=== PATIENT | male | born 1960 | race Caucasian/White ===

== ENCOUNTER 2020-03-14 16:29 | Outpatient (CLI) | payer BC, SELFPAY ==
--- NOTE | ~2020-03-14 | XR_ITS ---
EXAMINATION: XR chest 2V DATE: 03/14/2020 16:57 INDICATION: Thoracic spine pain. COPD. TECHNIQUE: PA and lateral views of the chest were obtained. COMPARISON: Chest radiograph dated 08/13/2017 FINDINGS: The lungs remain clear with no focal airspace opacities, pulmonary edema, pleural effusion or pneumot horax. The cardiomediastinal silhouette is normal. Moderate lower thoracic spondylosis. A couple fixa tion screws at the right shoulder. IMPRESSION: 1. No acute cardiopulmonary disease. Reviewed, dictated and finalized at location A. 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
--- NOTE | ~2020-03-14 | CT_ITS ---
EXAMINATION: CT abdomen pelvis wo con DATE: 03/14/2020 16:50 INDICATION: Right lower quadrant abdominal pain. Right groin pain. TECHNIQUE: Computed tomography (CT) of the abdomen and pelvis was performed without intravenous contr ast. Automated exposure control and iterative reconstruction technique were employed. The dose-length product was 1497.48 mGy-cm. COMPARISON: None. FINDINGS: The visualized portions of the lung bases demonstrate minimal atelectasis. No pleural effus ion. The heart size is normal. There are coronary artery calcifications. No pericardial effusion. The re is diffuse hepatic steatosis. The liver, gallbladder, spleen, pancreas, and kidneys are normal. Th ere is no urolithiasis. The prostate is mildly enlarged. There are no dilated loops of bowel. The tg endix is normal. There are no pathologically enlarged lymph nodes. There is no free intraperitoneal f luid. There is an umbilical hernia containing fat. There are a few scattered benign bone islands. The re is mild thoracic spondylosis and severe lumbar spondylosis. IMPRESSION: 1. Umbilical hernia containing fat. 2. Diffuse hepatic steatosis. Reviewed, dictated and finalized at location A. [employer]
== END 2020-03-14 16:30 | disposition home or self-care (01) ==
PROVIDERS: PCP Family Medicine; Visit Provider Family Medicine
DX: M54.6 Pain in thoracic spine (principal); K42.9 Umbilical hernia without obstruction or gangrene; K76.0 Fatty (change of) liver, not elsewhere classified
CPT/HCPCS: 71046; 74176

== ENCOUNTER 2020-03-29 15:04 | Emergency (ER) | payer BC, SELFPAY ==
--- NOTE | ~2020-03-29 | US_ITS ---
EXAMINATION: US venous doppler LE RT EXAM DATE: 03/29/2020 15:57 INDICATION: thigh pain and calf swelling. TECHNIQUE: Multiple grayscale, color flow and Doppler images of the right lower extremity deep venous system were obtained and reviewed. Comparison is made to prior examination from 06/13/2017. FINDINGS: The right common femoral, femoral and profunda veins demonstrate normal color flow, respira tory variation, augmentation and compressibility. Compressibility, color flow confirmed within the r ight popliteal, posterior tibial, peroneal, and greater saphenous veins. IMPRESSION: 1. No right lower extremity deep venous thrombosis. Reviewed, dictated and finalized at location A. 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
[2020-03-29 15:25] VITALS: TEMP 36.6; O2SAT 97; O2SAT 98
--- NOTE | 2020-03-29 15:26 | ED.LOWEXIN ---
HPI - Extremity Injury (Lower) General Chief Complaint: Abdominal Pain Stated Complaint: possible blood clot in groin Time Seen by Provider: 03/29/20 15:19 History of Present Illness HPI Narrative: Pain in the medial right thigh for a few weeks. constant. Worse with activity. He reports that he has had previous imaging and knows that he has arthritis, but his PCP told him to come here and get checked for a blood clot. No swelling, color change trauma, CP, SOB. Related Data Home Medications Medication Instructions Recorded Confirmed divalproex 500 mg tablet,extended 500 mg PO BID tablet 03/28/19 01/18/20 release 24 hr sildenafil 100 mg tablet 100 mg PO DAILY PRN 03/28/19 01/18/20 Allergies Allergy/AdvReac Type Severity Reaction Status Date / Time rivaroxaban Allergy Unknown Swelling Verified 10/11/18 15:54 No Known Allergies Allergy Unverified 06/14/17 12:14 Review of Systems Review of Systems: All systems reviewed & are unremarkable except as noted in HPI and below Constitutional: Constitutional: Denies chills, Denies fever(s) and Denies weakness Cardiovascular: Cardiovascular: Denies chest pain Respiratory: Respiratory: Denies dyspnea Musculoskeletal: Musculoskeletal: Denies back pain Neurologic: Denies numbness and Denies weakness PMFSH Past Medical History Medical History Encounter for prostate cancer screening Hematochezia Peripheral neuropathy Polycythemia Right lower quadrant abdominal pain Thoracic back pain Tobacco use disorder, continuous UTI (urinary tract infection) Family History Family History Mother Patient's mother is in good health Father Acute myocardial infarction, Onset Age: 48 Grandparent Cerebrovascular accident, Onset Age: 78 Social History Social History Smoking packs per day: 0.5 Smoking cigarettes per day: 10.0 Years smoked: 40 Smoking pack-years: 20.00 Smoking status: Current every day smoker Alcohol intake: current Substance use: never Exam Const: General: no acute distress and alert Orientation/consciousness: patient oriented x3 HENMT: Head: normal to inspection Resp: Effort & Inspection: normal respiratory effort Auscultation: clear to auscultation bilaterally Cardio: Rate: regular rate Rhythm: regular rhythm Other: DP and popiteal pulses 2+ and symmetric GI: GI Palp: Yes Soft to palpation and No Tenderness to palpation present (GI) Skin: General skin exam: normal color Rashes: no rashes Wounds: no wounds Neuro: General: patient oriented x3, moves all extremities, no focal motor deficits and CN's II-XI intact bilaterally Speech: normal speech Gait exam (Neuro): Normal gait present Extrem: General: normal to inspection and no edema Other: tenderness over the origin of the hip adductors on the right Psych: Appearance: grossly normal and well kempt Mental Status: mental status grossly normal Affect: normal affect Course Vital Signs Vital signs: Vital Signs Temperature 36.6 C 03/29/20 15:25 Pulse Oximetry 98 03/29/20 15:25 Temperature 36.6 C 03/29/20 15:25 Pulse Rate 67 03/29/20 16:41 Respiratory Rate 16 03/29/20 16:41 Blood Pressure 160/84 H 03/29/20 16:41 Pulse Oximetry 96 03/29/20 16:41 MDM - Extremity Injury (Lower) MDM Narrative Medical decision making narrative: Pain seems to arise from the hip joint on exam. Most likely arthritis. Could be aductor strain. I will obtain an ultrasound to rule out DVT. Medical Records Attestation: I reviewed the patient's medical records. Lab Data Attestation: I reviewed the patient's lab results. Result diagrams: 03/29/20 15:36 03/29/20 15:36 Labs: Lab Results 03/29/20 03/29/20 03/29/20 Range/Units 15:36 15:36 15:36 WBC 9.
[2020-03-29 15:40] VITALS: O2SAT 95
[2020-03-29 15:48] LABS: Basophils Percent Auto 0.3 % (0.2-1.2); Eosinophils Absolute Auto 0.2 K/mm3 (0-0.3); Hematocrit 50.6 % (42.0-52.0); Hemoglobin 16.9 g/dL (14.0-18.0); Immature Granulocyte Absolute 0.03 K/mm3 (0.00-0.031); Immature Granulocyte Percent A 0.3 % (0-0.5); Lymphocytes Absolute Auto 1.86 K/mm3 (0.9-3.2); Lymphocytes Percent Auto 19.9 % (18.3-44.2); Mean Corpuscular HGB Conc 33.4 g/dl (32-36); Mean Corpuscular Hemoglobin 30.7 pg (26-34); Mean Corpuscular Volume 91.8 fl (80-100); Mean Platelet Volume 9.8 fl (7.4-10.4); Monocytes Absolute Auto 0.7 K/mm3 (0.1-0.6); Monocytes Percent Auto 7.4 % (2.6-8.5); Neutrophils Absolute Auto 6.5 K/mm3 (1.3-6.7); Neutrophils Percent Auto 70.1 % (45.5-73.1); Platelet Count Result 206 k/mm3 (150-375); Red Blood Count 5.51 M/mm3 (4.6-6.20); Red Cell Distribution Width 13.6 % (11.5-14.5); White Blood Count 9.3 K/mm3 (4.5-10.0)
[2020-03-29 15:55] LABS: Anion Gap 9 mmol/L (8-16); Blood Urea Nitrogen 16 mg/dL (9-20); Calcium 9.2 mg/dL (8.4-10.2); Carbon Dioxide 30 mmol/L (22-30); Chloride 101 mmol/L (98-107); Estimated CRCL calculation 103 ml/min; Estimated Glomerular Filt Rate > 60; Glucose 98 mg/dL (75-110); Potassium 4.6 mmol/L (3.4-5.0); Sodium 140 mmol/L (137-145)
[2020-03-29 15:56] LABS: INR 0.9; Partial Thromboplastin Time 24.2 SECONDS (22.3-36.8); Prothrombin Time 13.2 Seconds (11.1-14.7)
--- NOTE | 2020-03-29 16:07 | PC.NURSE ---
patient back from ultrasound. resting on stretcher.
[2020-03-29 16:41] VITALS: BP 160/84; PULSE 67; RESP 16; O2SAT 96
== END 2020-03-29 16:43 | disposition home or self-care (01) ==
PROVIDERS: Emergency Provider Emergency Medicine; PCP Family Medicine
DX: R10.31 Right lower quadrant pain (principal); G62.9 Polyneuropathy, unspecified; Z87.440 Personal history of urinary (tract) infections; F17.210 Nicotine dependence, cigarettes, uncomplicated
CPT/HCPCS: 36415; 80048; 85025; 85610; 85730; 93971; 99284

== ENCOUNTER 2020-05-01 12:40 | Outpatient (CLI) | payer BC, SELFPAY ==
--- NOTE | ~2020-05-01 | XR_ITS ---
EXAMINATION: XR lg joint inject/asp w image DATE: 05/01/2020 13:28 INDICATION: Right hip primary osteoarthritis. TECHNIQUE: A time-out was performed to verify the patient's name, date of , and procedure to b e performed. The procedure including the risks, benefits, and alternatives was discussed with the pat ient. Risks discussed included bleeding and infection. The patient understood the risks and agreed to proceed. The skin overlying the right hip joint was prepped and draped in usual sterile fashion. A nesthetic was administered with 1% lidocaine subcutaneously. A 22 G needle was advanced under fluoro scopic guidance into the joint. Injection of 1 mL of Omnipaque 240 confirmed intra-articular positio n of the needle. Subsequently, injectate consisting of 5 mL 1% lidocaine and 2 mL 10 mg/mL Kenalog w as instilled. The needle was removed and the entry site was cleaned and dressed. There were no imme diate complications. Fluoroscopy exposure time was 0.1 minutes. The total number of images was 2. FINDINGS: Real-time fluoroscopy demonstrates the needle in the right hip joint. Patient's pain prior to procedure:10/18. Patient's pain following the procedure: 05/20. IMPRESSION: 1. Fluoroscopy guided right hip joint injection of local anesthetic and steroid with decrease in the patient's presenting pain. Reviewed, dictated and finalized at location A. PRESIDENT FINANCIAL
== END 2020-05-01 12:41 | disposition home or self-care (01) ==
PROVIDERS: PCP Family Medicine; Visit Provider Orthopaedic Surgery
DX: M16.11 Unilateral primary osteoarthritis, right hip (principal)
CPT/HCPCS: 20610; 77002; J3301; Q9966

== ENCOUNTER 2020-06-06 16:27 | Outpatient (CLI) | payer BC, SELFPAY ==
--- NOTE | ~2020-06-06 | MR_ITS ---
EXAMINATION: MR hip RT wo con DATE: 06/06/2020 17:45 INDICATION: Right hip pain TECHNIQUE: Magnetic resonance imaging (MRI) of the right hip was performed without intravenous contr ast. Sequences included full-field axial PD-weighted FS FSE and T1-weighted FSE, coronal of the pelvi s with PD-weighted FS FSE, small field of view of the right hip with axial PD-weighted FS FSE, sagit manuelito PD-weighted FS FSE and coronal PD weighted FS FSE. Additional radial T1-weighted FGR oriented ort hogonal to the acetabular rim were obtained for evaluation of the labrum. COMPARISON: None FINDINGS: Bones/labrum/cartilage: Alignment is normal. Low signal intensity sclerotic bone island at L5. No fracture, avascular necrosi s or pathologic marrow replacing process. Mild right hip osteoarthritis with nonuniform partial thick ness cartilage loss predominantly along the margins of the acetabulum without degenerative subchondra l changes. Severe lumbar spondylosis. Fluid: Small right hip joint effusion. There is also a small amount of fluid tracking cephalad along the rig ht iliopsoas bursa. Soft tissues: Normal and symmetric muscle bulk and signal in the pelvis and visualized proximal thighs. The iliopso as, gluteal and proximal hamstring tendons are normal. Limited evaluation of visceral organs of the p marsha is unremarkable. No pathologically enlarged pelvic/inguinal lymphadenopathy. IMPRESSION: 1. Mild right hip osteoarthritis with small joint effusion. Reviewed, dictated and finalized at location B. 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
== END 2020-06-06 16:28 | disposition home or self-care (01) ==
PROVIDERS: PCP Family Medicine; Visit Provider Orthopaedic Surgery
DX: M16.11 Unilateral primary osteoarthritis, right hip (principal); M25.451 Effusion, right hip
CPT/HCPCS: 73721

== ENCOUNTER 2021-01-10 14:09 | Emergency (ER) | payer BC, SELFPAY ==
[2021-01-10] VITALS (18 sets, daily range): BP systolic 145–175; BP diastolic 75–95; PULSE 59–98; RESP 18–20; TEMP 36.8; O2SAT 75–100
--- NOTE | ~2021-01-10 | XR_ITS ---
EXAMINATION: XR chest 2V DATE: 01/10/2021 14:35 INDICATION: Shortness of breath and congestion TECHNIQUE: PA and lateral views of the chest are obtained. COMPARISON: 03/14/2020 FINDINGS: There are minimal airspace opacities of the lung bases. There is no pleural effusion or pne umothorax. The cardiomediastinal silhouette is normal. There is moderate thoracic spondylosis. Book Solicitor al stabilization screws are noted in the right scapula. IMPRESSION: 1. Bibasilar airspace opacities, consistent with atelectasis versus pneumonia. Reviewed, dictated and finalized at location A.
--- NOTE | 2021-01-10 14:17 | ECG_ITS ---
Measurements Intervals [place] Rate: 62 P: 44 HI: 153 QRS: 72 QRSD: 108 T: 50 QT: 405 QTc: 412 Interpretive Statements SINUS RHYTHM NORMAL ECG Electronically Signed On 01-10-2021 14:25:06 CDT by Fortino Abad D.O.
[2021-01-10 14:57] LABS: Basophils Percent Auto 0.3 % (0.2-1.2); Eosinophils Absolute Auto 0.2 K/mm3 (0-0.3); Eosinophils Percent Auto 2.7 % (0-4.4); Hematocrit 48.7 % (42.0-52.0); Hemoglobin 16.2 g/dL (14.0-18.0); Immature Granulocyte Absolute 0.02 K/mm3 (0.00-0.031); Immature Granulocyte Percent A 0.3 % (0-0.5); Lymphocytes Absolute Auto 1.13 K/mm3 (0.9-3.2); Lymphocytes Percent Auto 14.6 % (18.3-44.2); Mean Corpuscular HGB Conc 33.3 g/dl (32-36); Mean Corpuscular Hemoglobin 31.4 pg (26-34); Mean Corpuscular Volume 94.4 fl (80-100); Mean Platelet Volume 9.7 fl (7.4-10.4); Monocytes Absolute Auto 0.7 K/mm3 (0.1-0.6); Monocytes Percent Auto 8.9 % (2.6-8.5); Neutrophils Absolute Auto 5.7 K/mm3 (1.3-6.7); Neutrophils Percent Auto 73.2 % (45.5-73.1); Platelet Count Result 188 k/mm3 (150-375); Red Blood Count 5.16 M/mm3 (4.6-6.20); Red Cell Distribution Width 12.8 % (11.5-14.5); White Blood Count 7.7 K/mm3 (4.5-10.0)
[2021-01-10 15:11] LABS: Anion Gap 11 mmol/L (8-16); Blood Urea Nitrogen 17 mg/dL (9-20); Calcium 9.5 mg/dL (8.4-10.2); Carbon Dioxide 30 mmol/L (22-30); Chloride 98 mmol/L (98-107); Estimated CRCL calculation 103 ml/min; Estimated Glomerular Filt Rate > 60; Glucose 114 mg/dL (65-110); Potassium 4.4 mmol/L (3.4-5.0); Sodium 139 mmol/L (137-145)
[2021-01-10 15:58] LABS: INR 0.9; Prothrombin Time 12.1 Seconds (11.1-14.7)
[2021-01-10] MEDS: predniSONE 20 MG TABLET 60 MG PO (16:02)
[2021-01-10 16:06] LABS: Troponin I < 0.012 ng/mL (0.000-0.034)
[2021-01-10 16:10] LABS: Alveolar/Arterial O2 Gradient 27.8 mmHg; Base Excess ABG 3.8 mEq/l (+/-2.0); Carboxyhemoglobin 3.5 % THb (0-2.0); Fractional Inspired Oxygen 21 %; HCO3 ABG 29.4 mEq/l (22.0-26.0); Methemoglobin ABG 0.4 %THb (0-1.5); Oxygen Content ABG 20.9 %vol (16.0-22.0); Oxygen Saturation ABG 92.9 % (95.0-100.0); PCO2 ABG 47.3 mmHg (35.0-45.0); PO2 ABG 65.3 mmHg (80.0-100.0); PO2 FiO2 Ratio Arterial Blood 3.11 %; Reduced Hemoglobin 7.1 %THb (0-5.0); Total Hemoglobin 16.7 g/dL (12.0-18.0); pH ABG 7.412 (7.350-7.450)
[2021-01-10 16:11] LABS: Device ROOM AIR; Modified Allen's Test Pass; Site Drawn RIGHT RADIAL
[2021-01-10] MEDS: ALBUTEROL SULFATE (*SP) AEROSOL 1 PUFF 4 PUFF INHALATION (16:12)
[2021-01-10 16:20] LABS: EDCOVIDSCREEN Negative (Negative)
[2021-01-10 16:24] LABS: D Dimer 0.27 ug/mL (<0.48)
--- NOTE | 2021-01-10 16:33 | ED.URI ---
HPI - URI/Sore Throat General Chief Complaint: Upper Respiratory Infection Stated Complaint: Head and Chest Cold/SOB Time Seen by Provider: 01/10/21 14:59 Source: patient Mode of arrival: ambulatory Limitations: no limitations History of Present Illness HPI Narrative: This is a 60 year old male with history of COPD who presents for evaluation of sob and URI symptoms for 4 days. Patient states he developed head cold symptoms and shortness of breath on Thursday. He reports sinus congestion and drainage. He also reports cough with intermittent chest pain and sob. Patient state his doctor recommended he come to ER since he was wheezing, but he prescribed him steroids and antibiotics. He denies chest pain currently. He denies vomiting, abdominal pain. Related Data Allergies Allergy/AdvReac Type Severity Reaction Status Date / Time rivaroxaban Allergy Unknown Swelling Verified 10/11/18 15:54 No Known Allergies Allergy Unverified 01/10/21 15:11 Review of Systems Review of Systems: All systems reviewed & are unremarkable except as noted in HPI and below Constitutional: Constitutional: Denies chills and Denies fever(s) ENT: Reports nasal congestion Cardiovascular: Cardiovascular: Reports chest pain Respiratory: Respiratory: Reports cough, Reports dyspnea and Reports wheezing Gastrointestinal: Gastrointestinal: Denies abdominal pain and Reports nausea PMFSH Past Medical History Medical History (Updated 01/10/21 @ 17:26 by Mima Camacho MD) Acute bronchitis Encounter for prostate cancer screening Gout Hematochezia Hypertension Osteoarthritis of right hip Pain of right lower extremity Peripheral neuropathy Polycythemia Right lower quadrant abdominal pain Thoracic back pain Tobacco use disorder, continuous UTI (urinary tract infection) Surgical History Surgical History H/O left knee surgery october 2010 H/O shoulder surgery 1994 History of right knee surgery 2017 TKA, Dr. Jane Family History Family History Mother Patient's mother is in good health Father Acute myocardial infarction, Onset Age: 48 Grandparent Cerebrovascular accident, Onset Age: 78 Social History Social History Smoking packs per day: 0.5 Smoking cigarettes per day: 10.0 Years smoked: 40 Smoking pack-years: 20.00 Smoking status: Current every day smoker ( less than 1/2 of a pack daily with patient trying to quit) Alcohol intake: current Drinks per week: 15 Substance use: never Substance use type: does not use Additional occupation/education comments: [employer] Gender identity (if verbalized by the patient): Male Exam Const: General: no acute distress and alert Orientation/consciousness: patient oriented x3 HENMT: Ears: TM's normal bilaterally Eyes: Pupils: Equal, round and reactive pupils present EOM: EOMs intact bilaterally Resp: Effort & Inspection: normal respiratory effort, not labored, not tachypneic and no use of accessory muscles Auscultation: wheezes expiratory wheezes and throughout Cardio: Rate: regular rate Rhythm: regular rhythm Heart sounds: no murmurs GI: GI Palp: Yes Soft to palpation, No Tenderness to palpation present (GI) and No Guarding due to palpation present (GI) Auscultation: normal bowel sounds Skin: General skin exam: normal color Rashes: no rashes Neuro: General: patient oriented x3, moves all extremities and CN's II-XI intact bilaterally Gait exam (Neuro): Normal gait present Course Reevaluation(s) Reevaluation #1: Patient states he feels much better after inhaler I reviewed labs and xray. He states his doctor called him in antibiotics. I performed a walking pulse ox and patient's oxygen saturation was 94% walking down espinal. He feels comfortable with discharge
== END 2021-01-10 17:38 | disposition home or self-care (01) ==
PROVIDERS: Emergency Medicine; Emergency Provider General Practice; PCP Family Medicine
DX: J44.1 Chronic obstructive pulmonary disease with (acute) exacerbation (principal); J18.9 Pneumonia, unspecified organism; Z20.822 Contact with and (suspected) exposure to COVID-19; M10.9 Gout, unspecified; I10 Essential (primary) hypertension; M16.11 Unilateral primary osteoarthritis, right hip; G62.9 Polyneuropathy, unspecified; Z87.442 Personal history of urinary calculi; F17.210 Nicotine dependence, cigarettes, uncomplicated
CPT/HCPCS: 36415; 36600; 71046; 80048; 82375; 82805; 83050; 84484; 85025; 85380; 85610; 85730; 87426; 87804; 93005; 94640; 99284; A9270; C9803; J7512

== ENCOUNTER 2021-05-23 12:36 | Outpatient (CLI) | payer BC, SELFPAY ==
--- NOTE | 2021-05-23 17:11 | WPDPFTINT ---
PFT Procedure Performed PFT Procedure Performed Spirometry with Pre/Post Bronchodilator Plethysmography (Lung Vol) Diffusing Cap (DLCO) Flow Vol Loop PFT Interpretation This is a pulmonary function test with pre and post-bronchodilator spirometry, plethysmography and diffusing capacity. The test was performed and results interpreted in accordance with the 2019 and 2005 ATS/ERS Task Force guidelines respectively using the Global Lung Function Initiative-2012 reference equations. Patient demonstrated good effort and cooperation. Reproducibility criteria were met. The quality of the pre bronchodilator spirometry maneuver was Grade A and post bronchodilator spirometry maneuver was Grade A. Findings: Spirometry: There is decreased maximal expiratory airflow at all lung volumes with concave expiratory flow tracing. The pre bronchodilator FVC is 3.05 L, 63% predicted. The pre bronchodilator FEV1 is 2.18 L, 59% predicted. The FEV1: FVC ratio 71%. The post bronchodilator FVC is 3.20 L, representing a 5% increase. The post bronchodilator FEV1 is 2.37 L, representing a 9% increase. The post bronchodilator FEV1: FVC ratio 74%. Plethysmography: Total lung capacity is 6.10 L, 82% predicted. The functional residual capacity is 3.49 L, 89% predicted. The residual volume is 2.82 L, 117% predicted. Diffusing capacity: The absolute diffusion capacity is 27.5, 96% predicted. The diffusing capacity corrected for alveolar volume is 5.74, 142% predicted. Impression: There is a moderately severe obstructive abnormality without significant improvement after inhaling a single dose of albuterol. Lung volumes are normal. The absolute diffusing capacity is normal and the diffusing capacity corrected for alveolar volume is increased. There are no prior studies for comparison
== END 2021-05-23 12:37 | disposition home or self-care (01) ==
LOC: ANHPFT 12:39
PROVIDERS: PCP Family Medicine; Visit Provider Family Medicine
DX: J44.9 Chronic obstructive pulmonary disease, unspecified (principal)
CPT/HCPCS: 94060; 94726; 94729

== ENCOUNTER 2021-07-16 12:02 | Inpatient (IN) | payer BC, SELFPAY ==
[2021-07-16] VITALS (17 sets, daily range): BP systolic 136–154; BP diastolic 52–101; PULSE 62–88; RESP 16–42; TEMP 36.6–37.3; O2SAT 90–97; BMI 42.2
--- NOTE | ~2021-07-16 | XR_ITS ---
EXAMINATION: XR chest 2V EXAM DATE: 07/16/2021 12:33 INDICATION: SOB COPD HBP TECHNIQUE: Frontal and lateral projections of the chest obtained and reviewed. Comparison is made to prior examination from 01/10/2021. FINDINGS: The lungs are clear. There are no pleural effusions. The cardiomediastinal silhouette is within normal limits. There is no pneumothorax suspected. Moderate-sized lower thoracic endplate os teophytes. IMPRESSION: No acute cardiopulmonary findings. Reviewed, dictated and finalized at location A. T LINE SUPERVISOR
--- NOTE | ~2021-07-16 | US_ITS ---
EXAMINATION: US venous doppler [facility] DATE: 07/17/2021 11:45 INDICATION: Bilateral lower limb edema TECHNIQUE: Carrion scale images without and with compression and Doppler images of the bilateral lower e xtremity veins were obtained. COMPARISON: 03/29/2020 FINDINGS: The right common femoral vein, profunda femoral vein, femoral vein, popliteal vein, peroneal trunk, p osterior tibial veins, and greater saphenous vein are patent. The left common femoral vein, profunda femoral vein, femoral vein, popliteal vein, peroneal trunk, po sterior tibial veins, and greater saphenous vein are patent. IMPRESSION: 1. Patent bilateral lower extremity veins. No evidence of deep venous thrombosis. Reviewed, dictated and finalized at location B. WORKER SUPERVISOR IMPRESSION: 1. Patent bilateral lower extremity veins. No evidence of deep venous thrombosi s.
--- NOTE | 2021-07-16 12:16 | ECG_ITS ---
Measurements Intervals [place] Rate: 87 P: 50 [place]: 151 QRS: 89 QRSD: 102 T: 61 QT: 344 QTc: 416 Interpretive Statements SINUS RHYTHM POSSIBLE LEFT ATRIAL ENLARGEMENT [-0.1mV P-WAVE IN V1/V2] BORDERLINE ECG COMPARED TO ECG 01/10/2021 14:20:27 POSSIBLE LEFT ATRIAL ENLARGEMENT Electronically Signed On 07-16-2021 14:54:36 PEDIATRIC CLINICAL DIETICIAN by Jaylen Her M.D.
--- NOTE | 2021-07-16 12:44 | ED.SOB ---
HPI - SOB/Dyspnea General Chief Complaint: Shortness of Breath/Dyspnea Stated Complaint: shortness of breath Time Seen by Provider: 07/16/21 12:29 Source: patient Mode of arrival: ambulatory Limitations: no limitations History of Present Illness HPI Narrative: Patient is a 61-year-old male complaining of shortness of breath accompanied by chest discomfort described as burning, mild, nonradiating, started 3 days ago. Patient has a history of COPD. Patient denies any chest pain, abdominal pain, nausea, vomiting, diaphoresis, fever or chills. Related Data Allergies Allergy/AdvReac Type Severity Reaction Status Date / Time rivaroxaban Allergy Unknown Swelling Verified 10/11/18 15:54 Review of Systems Review of Systems: All systems reviewed & are unremarkable except as noted in HPI and below Constitutional: Constitutional: Denies body ache(s), Denies chills, Denies excessive sweating, Denies fatigue, Denies fever(s), Denies headache(s), Denies lethargy, Denies malaise, Denies weakness and Denies weight loss Eyes: Eyes: Denies blurry vision, Denies change in vision and Denies loss of vision ENT: Denies dizziness, Denies ear discharge, Denies headache(s), Denies lip swelling, Denies epistaxis, Denies nasal congestion, Denies neck pain, Denies throat swelling and Denies tongue swelling Cardiovascular: Cardiovascular: Denies chest pain, Denies chest pain at rest, Denies chest pain with activity, Denies diaphoresis, Denies rapid heart rate, Denies edema, Denies irregular heart rhythm, Denies lightheadedness and Denies palpitations Respiratory: Respiratory: Denies chest congestion and Denies hemoptysis Gastrointestinal: Gastrointestinal: Denies abdominal pain, Denies melena, Denies hematochezia, Denies diarrhea, Denies nausea, Denies vomiting and Denies hematemesis Musculoskeletal: Musculoskeletal: Denies abnormal gait, Denies deformity, Denies joint swelling, Denies limited range of motion, Denies neck pain and Denies numbness Neurologic: Denies Abnormal speech present, Denies abnormal gait, Denies confusion, Denies dizziness, Denies headache(s), Denies focal weakness, Denies loss of vision, Denies numbness, Denies Other visual disturbances, Denies Sensory deficit (Neuro) and Denies weakness Psychiatric: Psychiatric: Denies confusion, Denies depression, Denies auditory hallucinations, Denies homicidal ideation and Denies suicidal ideation Endocrine: Endocrine: Denies cold intolerance, Denies excessive sweating, Denies fatigue, Denies heat intolerance and Denies palpitations Hematologic/Lymphatic: Hematologic/Lymphatic: Denies easy bleeding and Denies easy bruising Allergic/Immunologic: Allergic/Immunologic: Denies lip swelling, Denies throat swelling and Denies tongue swelling PMFSH Past Medical History Medical History Acute bronchitis BMI 39.0-39.9,adult Chronic low back pain with bilateral sciatica Colon cancer screening Encounter for prostate cancer screening Gout Hematochezia Hypertension Osteoarthritis of right hip Pain of right lower extremity Peripheral neuropathy Polycythemia Right lower quadrant abdominal pain Thoracic back pain Tobacco use disorder, continuous UTI (urinary tract infection) Surgical History Surgical History H/O left knee surgery october 2010 H/O shoulder surgery 1994 History of right knee surgery 2016 TKA, Dr. Jane Family History Family History Mother Patient's mother is in good health Father Acute myocardial infarction, Onset Age: 48 Grandparent Cerebrovascular accident, Onset Age: 78 Social History Social History Smoking packs per day: 0.5 Smoking cigarettes per day: 10.0 Years smoked: 40 Smoking pack-years: 20.00 Smoking status:
[2021-07-16 12:47] LABS: Basophils Percent Auto 0.3 % (0.2-1.2); Eosinophils Absolute Auto 0.1 K/mm3 (0-0.3); Eosinophils Percent Auto 0.9 % (0-4.4); Hemoglobin 16.9 g/dL (14.0-18.0); Immature Granulocyte Absolute 0.02 K/mm3 (0.00-0.031); Immature Granulocyte Percent A 0.3 % (0-0.5); Lymphocytes Absolute Auto 0.47 K/mm3 (0.9-3.2); Lymphocytes Percent Auto 6.4 % (18.3-44.2); Mean Corpuscular HGB Conc 32.5 g/dl (32-36); Mean Corpuscular Hemoglobin 30.7 pg (26-34); Mean Corpuscular Volume 94.5 fl (80-100); Mean Platelet Volume 9.5 fl (7.4-10.4); Monocytes Absolute Auto 0.7 K/mm3 (0.1-0.6); Monocytes Percent Auto 9.6 % (2.6-8.5); Neutrophils Absolute Auto 6.1 K/mm3 (1.3-6.7); Neutrophils Percent Auto 82.5 % (45.5-73.1); Platelet Count Result 153 k/mm3 (150-375); Red Cell Distribution Width 13.9 % (11.5-14.5); White Blood Count 7.4 K/mm3 (4.5-10.0)
[2021-07-16] MEDS: methylPREDNISolone SOD SUCC 125 MG VIAL IV PUSH (12:58)
[2021-07-16] MEDS: IPRATROPIUM BR 0.02% INH SOLN 0.5 MG/2.5 ML VIAL INHALATION ×2 (13:00→21:01)
[2021-07-16] MEDS: ALBUTEROL SULFATE NEB 2.5 MG/0.5 ML INH 5 MG INHALATION ×2 (13:00→21:01)
[2021-07-16 13:02] LABS: Alanine Aminotransferase 42 U/L (4-50); Albumin Level 4.6 g/dL (3.5-5.1); Alkaline Phosphatase 60 U/L (38-126); Anion Gap 9 mmol/L (8-16); Aspartate Amino Transferase 43 U/L (17-59); Bilirubin,Total 0.5 mg/dL (0.2-1.3); Blood Urea Nitrogen 10 mg/dL (9-20); Calcium 9.2 mg/dL (8.4-10.2); Carbon Dioxide 31 mmol/L (22-30); Chloride 97 mmol/L (98-107); Estimated CRCL calculation 105 ml/min; Estimated Glomerular Filt Rate > 60; Glucose 131 mg/dL (65-110); Potassium 4.6 mmol/L (3.4-5.0); Sodium 137 mmol/L (137-145)
[2021-07-16 13:06] LABS: Alveolar/Arterial O2 Gradient 59.3 mmHg; Base Excess ABG 3.9 mEq/l (+/-2.0); Carboxyhemoglobin 4.5 % THb (0-2.0); Fractional Inspired Oxygen 28 %; HCO3 ABG 30.7 mEq/l (22.0-26.0); Methemoglobin ABG 0.4 %THb (0-1.5); Oxygen Content ABG 21.9 %vol (16.0-22.0); Oxyhemoglobin 90.4 % THb (90.0-100.0); PCO2 ABG 53.4 mmHg (35.0-45.0); PO2 ABG 77.3 mmHg (80.0-100.0); PO2 FiO2 Ratio Arterial Blood 2.76 %; Reduced Hemoglobin 4.7 %THb (0-5.0); Total Hemoglobin 17.2 g/dL (12.0-18.0); pH ABG 7.377 (7.350-7.450)
[2021-07-16 13:07] LABS: Device NASAL CANNULA; Modified Allen's Test Pass; Site Drawn RIGHT RADIAL
[2021-07-16 13:52] LABS: D Dimer < 0.27 ug/mL (<0.48)
[2021-07-16 13:53] LABS: NT Pro B Type Natriuretic Pept 107 pg/mL (5-100)
--- NOTE | 2021-07-16 16:00 | PM.IMHP ---
H&P: HPI History of Present Illness Date/Time: 07/16/21 16:00 Chief Complaint: Shortness of breath. Narrative: This is a pleasant 61-year-old male smoker with COPD, obstructive sleep apnea intolerant to CPAP, and hypertension who presented to the emergency department for evaluation of shortness of breath. He has not been feeling well for a couple of days with chills, cough productive of yellowish-green phlegm, shortness of breath on lesser and lesser exertion, intermittent ?burning? discomfort in his chest, and increasing lower extremity edema from baseline. He also mentions a decrease in appetite related to a decrease in taste since last Thursday. With further questioning he does mention that several of his coworkers at [employer] [facility] [employer] [facility] have had COVID. Patient reports that he is fully vaccinated and boosted against the same and his SARS-CoV-2 by PCR was negative. Chest x-ray today did not show any acute findings and his troponin level was within normal limits. EKG did not show any acute ST segment changes. Given continued wheezing and concerns regarding his chest pain, I was asked to admit the patient overnight for observation. At the time my evaluation he is sitting at the side of the bed and is feeling better after receiving a nebulizer but he is still wheezing quite a bit. He is not having any active chest discomfort at this time and he denies having exertional chest pain. He also denies that this burning sensation is similar to thinks he would experience with indigestion. He has not had a documented fever and he denies headache, congestion, sore throat, nausea, vomiting, and diarrhea. No calf pain or discomfort. Review of Systems Review of Systems: Twelve systems were reviewed. Weight has remained stable if not up a bit. He gets up about every 2 hours at night due to chronic back pain and the need to urinate. He has never had signs or symptoms of alcohol withdrawal. Except as documented, all other systems were reviewed and are negative. [facility] Past Medical History Medical History (Updated 07/16/21 @ 21:11 by Bessy Alberto PA-C) Benign prostatic hyperplasia Bipolar disorder BMI 39.0-39.9,adult Chronic low back pain with bilateral sciatica Gout Hypertension Obstructive sleep apnea Intolerant to CPAP. Osteoarthritis of right hip Peripheral neuropathy Polycythemia Tobacco use disorder, continuous Surgical History Surgical History (Updated 07/16/21 @ 21:06 by Bessy Alberto PA-C) History of arthroplasty of right knee (2016) Dr. Jane. History of arthroscopy of left knee (10/2010) History of shoulder surgery (1994) Family History Family History Mother Patient's mother is in good health Father Acute myocardial infarction, Onset Age: 48 Grandparent Cerebrovascular accident, Onset Age: 78 Social History Social History (Updated 07/16/21 @ 21:07 by Bessy Alberto PA-C) Social History: Surrogate decision maker: Jeffryedy Salgado, brother. Code status: Full code. Smoking packs per day: 0.5 Smoking cigarettes per day: 10.0 Years smoked: 45 Smoking pack-years: 22.50 Smoking status: Current every day smoker Tobacco type: cigarettes Alcohol intake: current Drinks per week: 35 Alcohol use details: Drinks 4 to 5 beers most nights of the week. Substance use: never Substance use type: does not use Additional living arrangements comments: The patient lives in [place]. Additional occupation/education comments: Works at [employer]. Meds Home Medications and Allergies Home Medications Medication Instructions Recorded Confirmed Type albuterol sulfate 2 puff INHALATION QID PRN #6.7 g 01/10/21 02/25/21 Rx allopurinol 100 mg tablet 100 mg PO DAILY #90 tablet 02/25/21 02/25/21 Rx aripiprazole 10 mg tablet 10 mg PO DAILY #90 tablet 02/25/21 02/25/21 Rx atorvastatin 40 mg tablet 40 mg PO DAILY #90 tablet 02/25/21
[2021-07-16] MEDS: ASPIRIN 81 MG CHEWABLE TABLET 324 MG PO (16:01)
[2021-07-16 16:18] LABS: Troponin I < 0.012 ng/mL (0.000-0.034)
[2021-07-16 16:30] LABS: Troponin I < 0.012 ng/mL (0.000-0.034)
[2021-07-16 17:28] LABS: SARS-CoV-2 RNA PCR Negative
--- NOTE | 2021-07-16 17:45 | PC.NURSE ---
[email or web address] Admission Note: The patient,Alexsander Salgado,61 y/o, was given written information regarding hospital policies, unit procedures and contact persons. Patient's smoking status: Current every day smoker.
[2021-07-16 20:02] LABS: Troponin I < 0.012 ng/mL (0.000-0.034)
[2021-07-16] MEDS: ENOXAPARIN 40 MG/0.4 ML SYRINGE SUB-Q (21:57)
[2021-07-16] MEDS: methylPREDNISolone SOD SUCC 125 MG VIAL 60 MG IV PUSH (21:57)
[2021-07-16] MEDS: AMOXICILLIN/CLAVULANATE K 875-125 MG TAB 1 TABLET PO (21:57)
[2021-07-17] VITALS (23 sets, daily range): BP systolic 118–152; BP diastolic 51–87; PULSE 60–89; RESP 16–24; TEMP 36.2–36.6; O2SAT 90–100
[2021-07-17] MEDS: IPRATROPIUM BR 0.02% INH SOLN 0.5 MG/2.5 ML VIAL INHALATION ×4 (02:43→20:40)
[2021-07-17] MEDS: ALBUTEROL SULFATE NEB 2.5 MG/0.5 ML INH 5 MG INHALATION ×4 (02:43→20:40)
[2021-07-17 05:07] LABS: Hematocrit 53.1 % (42.0-52.0); Hemoglobin 17.4 g/dL (14.0-18.0); Mean Corpuscular HGB Conc 32.8 g/dl (32-36); Mean Corpuscular Hemoglobin 30.7 pg (26-34); Mean Corpuscular Volume 93.8 fl (80-100); Mean Platelet Volume 9.8 fl (7.4-10.4); Platelet Count Result 186 k/mm3 (150-375); Red Blood Count 5.66 M/mm3 (4.6-6.20); Red Cell Distribution Width 13.6 % (11.5-14.5); White Blood Count 7.9 K/mm3 (4.5-10.0)
[2021-07-17 05:12] LABS: Anion Gap 9 mmol/L (8-16); Blood Urea Nitrogen 17 mg/dL (9-20); Calcium 9.2 mg/dL (8.4-10.2); Carbon Dioxide 30 mmol/L (22-30); Chloride 97 mmol/L (98-107); Estimated CRCL calculation 120 ml/min; Estimated Glomerular Filt Rate > 60; Glucose 161 mg/dL (65-110); Magnesium 2.2 mg/dL (1.6-2.3); Potassium 4.8 mmol/L (3.4-5.0); Sodium 136 mmol/L (137-145)
[2021-07-17] MEDS: methylPREDNISolone SOD SUCC 125 MG VIAL 60 MG IV PUSH ×3 (05:48→21:13)
[2021-07-17 05:52] LABS: Valproic Acid 21.4 ug/mL (50-120)
[2021-07-17] MEDS: AMOXICILLIN/CLAVULANATE K 875-125 MG TAB 1 TABLET PO ×2 (09:49→21:09)
--- NOTE | 2021-07-17 10:29 | PC.NURSE ---
OK for patient to leave the unit for test without the nurse, per Yulisa.
[2021-07-17] MEDS: PERFLUTREN LIPID MICROSPHERES 1.5 ML VIAL DILUTED TO 10 ML TOTAL VOLUME IV PUSH (10:52)
--- NOTE | 2021-07-17 10:52 | IVDEFINITY ---
Prior to administration of IV Definity the patient was educated on the risks and benefits of the imaging enhancing agent including potential adverse side effects. The patient verbalized understanding. Allergies were verified. No exclusion criteria were identified and at least one of the following inclusion criteria were met: 1) physician request, 2) patient technically difficult to image (per the [place] [employer]ocardi[employer] guidelines of two or more segments not discernable within the apical view), or 3) questionable left ventricular function. ?
--- NOTE | 2021-07-17 12:55 | PCCCNOTE ---
On 07/17/21, the student, [Jocelyn Rivas], provided care and completed [facility] documentation on this patient. I have reviewed the student's documentation and agree with the findings.
[2021-07-17 13:09] LABS: Hemoglobin A1C 5.8 % (<5.7)
--- NOTE | 2021-07-17 13:31 | PM.IMPN ---
Progress Note: A&P Assessment and Plan (1) Acute exacerbation of chronic obstructive pulmonary disease: Code(s): J44.1 - Chronic obstructive pulmonary disease with (acute) exacerbation Status: Acute Assessment and Plan: Likely precipitated by acute bronchitis in the setting of ongoing tobacco use. No evidence of pneumonia on imaging. continue IV Solu-Medrol 60 mg q.8 hours continue p.o. Augmentin in light of increased sputum production continue albuterol and ipratropium nebs q.6 hours requiring 2 L supplemental O2 per nasal cannula. Maintaining adequate O2 sats 100%, therefore this can be weaned (2) Chest discomfort: Code(s): R07.89 - Other chest pain Status: Acute Assessment and Plan: Resolved. May be related to his COPD Symptoms not consistent with cardiac pain. ACS ruled out by negative troponins echocardiogram reviewed. No wall motion abnormalities, no significant valvular disease. (3) Tobacco use disorder, continuous: Code(s): F17.209 - Nicotine dependence, unspecified, with unspecified nicotine-induced disorders Status: Acute Assessment and Plan: Smoking cessation is encouraged and was discussed. Nicotine patch available for the patient per his request. (4) Diastolic dysfunction: Code(s): I51.89 - Other ill-defined heart diseases Status: Acute Assessment and Plan: Echocardiogram performed today showed grade 1 diastolic dysfunction this can account for his trace lower extremity edema. Venous Doppler negative for DVT no evidence of pulmonary edema continue to monitor volume status closely heart healthy diet (5) Hypertension: Code(s): I10 - Essential (primary) hypertension Status: Acute Assessment and Plan: Blood pressures reviewed and have been stable. Last BP 120/51 Resume home metoprolol succinate 100 mg daily (6) Bipolar disorder: Code(s): F31.9 - Bipolar disorder, unspecified Status: Acute Assessment and Plan: No acute issues Continue home medications (7) Benign prostatic hyperplasia: Code(s): N40.0 - Benign prostatic hyperplasia without lower urinary tract symptoms Status: Acute Assessment and Plan: Continue tamsulosin. (8) Obstructive sleep apnea: Code(s): G47.33 - Obstructive sleep apnea (adult) (pediatric) Status: Acute Assessment and Plan: Patient is intolerant to CPAP. Discussed importance of trying to get used to using the CPAP. (9) Prediabetes: Code(s): R73.03 - Prediabetes Status: Acute Assessment and Plan: A1c is 5.8 patient will need to implement dietary and lifestyle modifications Subjective Date/time seen: 07/17/21 13:31 Interval history: date of service: 07/17/2021 Alexsander Salgado is a 61-year-old male with a history of COPD, NABIL, and hypertension who is seen in follow-up for COPD exacerbation. Is starting to feel a bit better today. He still endorses pretty significant wheezing but he notes that this has improved with the oxygen. He is able to get up and walk to the bathroom back and this does not cause him dyspnea on exertion. He does note that if he had to go much further though he would be quite short of breath. He endorses orthopnea. No PND. He does have a cough that is occasionally productive of scant clear sputum. He notes some edema and tenderness of his lower extremities, as well as some faint discoloration. He denies abdominal pain, nausea, vomiting, fever, or chills. No dizziness or lightheadedness. No chest pain. No additional concerns Review of Systems Review of Systems: All systems reviewed & are unremarkable except as noted in HPI and below Exam Narrative: General: obese, well-appearing 61 year-old male, sitting up in bed, comfortable, NARD Neuro: awake, alert and oriented x4, speech clear, no focal neuro deficits noted
[2021-07-17] MEDS: NICOTINE (*PBKC) 7 MG PATCH 1 PATCH TRANSDERM (18:27)
--- NOTE | 2021-07-17 20:11 | PC.NURSE ---
This patient, Alexsander Salgado, was transferred to [[id number]] on 07/17/21 at 2010. Personal belongings sent with patient. Report given to [ Leona eden]. Appropriate documentation sent with patient.
[2021-07-17] MEDS: ENOXAPARIN 40 MG/0.4 ML SYRINGE SUB-Q (21:09)
--- NOTE | 2021-07-17 21:13 | ECHO_ITS ---
Patient Info Name: Alexsander Salgado Age: 61 years : 1960 Gender: Male Ht: 72 in Wt: 311 lbs BSA: 2.74 m2 HR: 60 bpm BP: 143 / 79 mmHg Heart Rhythm: Sinus Rhythm Technical Quality: Fair Exam Date: 07/17/2021 9:48 AM Exam Location: [facility] Patient Status: Outpatient Admit Date: 07/16/2021 Staff Ordering Physician: Bessy Alberto PA-C Picture Enlarger: Karen Miguel RDCS Attending Provider: Yulisa Nicole PA-C Referring Physician: Remy MELCHOR; Exam Type: CA echo dop bubble study w con Study Info Indications - shortness of breath, edema, zaid Complete two-dimensional, color flow and Doppler transthoracic echocardiogram is performed with contrast to opacify the left ventricle and to improve the deliniation of the left ventricle endocardial borders. Contrast/Agitated Saline Contrast/Ag. Saline: Definity Amount: 2.00 ml Administered By: Karen Miguel RDCS Existing IV Access: Yes IV Access Condition: patent with no signs of infiltration Summary 1. Left ventricular chamber dimension is normal. 2. Definity contrast administered improved wall motion interpretation. 3. Left ventricular systolic function is normal, estimated at 60-65%. 4. The left ventricular diastolic function is grade I diastolic dysfunction. 5. E/e' 13 is mildly elevated. 6. Left atrial chamber dimension is moderately enlarged. 7. The mitral valve has moderately calcified annulus. 8. No pulmonary hypertension, estimated pulmonary arterial systolic pressure is 26 mmHg. Left Ventricle E/e' 13 is mildly elevated. Definity contrast administered improved wall motion interpretation. Left ventricular chamber dimension is normal. Left ventricular systolic function is normal, estimated at 60-65%. The left ventricular diastolic function is grade I diastolic dysfunction. Right Ventricle Right ventricular systolic function is normal and with normal TAPSE 2.6 cm. Right ventricular chamber dimension is normal. Left Atria Left atrial chamber dimension is moderately enlarged. Right Atria Right atrial chamber dimension is normal. Atrial Septum Agitated saline injection with and without valsalva maneuver opacified right cardiac chambers without shunt to left cardiac chambers. Intact interatrial septum visualized by agitated saline imaging. Aortic Valve The aortic valve is trileaflet. There is no aortic valve stenosis. There is no aortic valve regurgitation. Pulmonic Valve There is no pulmonic regurgitation. Mitral Valve The mitral valve has moderately calcified annulus. There is no mitral valve stenosis. There is no mitral valve regurgitation. Tricuspid Valve There is no tricuspid valve regurgitation. No pulmonary hypertension, estimated pulmonary arterial systolic pressure is 26 mmHg. Pericardium/Pleural There is no pericardial effusion. Inferior Vena Cava Normal inferior vena cava with >50% collapse upon inspiration consistent with normal right atrial pressure, 5 mmHg. Aorta The aortic root size at the sinus of Valsalva is normal. Left Ventricular Outflow Tract Name Value Normal LVOT 2D LVOT Diameter 2.1 cm
[2021-07-18] VITALS (18 sets, daily range): BP systolic 134–150; BP diastolic 70–101; PULSE 65–89; RESP 16–94; TEMP 36.1–36.7; O2SAT 90–94
[2021-07-18] MEDS: IPRATROPIUM BR 0.02% INH SOLN 0.5 MG/2.5 ML VIAL INHALATION ×4 (02:28→21:04)
[2021-07-18] MEDS: ALBUTEROL SULFATE NEB 2.5 MG/0.5 ML INH 5 MG INHALATION ×4 (02:28→21:05)
[2021-07-18 05:29] LABS: Hematocrit 52.8 % (42.0-52.0); Hemoglobin 16.8 g/dL (14.0-18.0); Mean Corpuscular HGB Conc 31.8 g/dl (32-36); Mean Corpuscular Hemoglobin 30.9 pg (26-34); Mean Corpuscular Volume 97.2 fl (80-100); Mean Platelet Volume 9.6 fl (7.4-10.4); Platelet Count Result 207 k/mm3 (150-375); Red Blood Count 5.43 M/mm3 (4.6-6.20); Red Cell Distribution Width 13.8 % (11.5-14.5); White Blood Count 15.2 K/mm3 (4.5-10.0)
[2021-07-18 05:49] LABS: Anion Gap 6 mmol/L (8-16); Blood Urea Nitrogen 26 mg/dL (9-20); Calcium 8.9 mg/dL (8.4-10.2); Carbon Dioxide 34 mmol/L (22-30); Chloride 97 mmol/L (98-107); Estimated CRCL calculation 106 ml/min; Estimated Glomerular Filt Rate > 60; Glucose 160 mg/dL (65-110); Potassium 4.9 mmol/L (3.4-5.0); Sodium 137 mmol/L (137-145)
[2021-07-18] MEDS: methylPREDNISolone SOD SUCC 125 MG VIAL 60 MG IV PUSH ×3 (06:23→20:49)
[2021-07-18] MEDS: METOPROLOL SUCCINATE EXT REL 100 MG TABCR PO (09:23)
[2021-07-18] MEDS: TAMSULOSIN HCL 0.4 MG CAPSULE PO (09:23)
[2021-07-18] MEDS: AMOXICILLIN/CLAVULANATE K 875-125 MG TAB 1 TABLET PO ×2 (09:23→20:48)
[2021-07-18] MEDS: NICOTINE (*PBKC) 7 MG PATCH 1 PATCH TRANSDERM (12:18)
--- NOTE | 2021-07-18 14:13 | P.PNIM_ITS ---
Progress Note: A&P Assessment and Plan (1) Acute exacerbation of chronic obstructive pulmonary disease: Code(s): J44.1 - Chronic obstructive pulmonary disease with (acute) exacerbation Status: Acute Assessment and Plan: Likely precipitated by acute bronchitis in the setting of ongoing tobacco use. * No evidence of pneumonia on imaging. * Last dose of Solumedrol will be given this evening. * Start po Prednisone 60 mg daily starting tomorrow. * continue p.o. Augmentin in light of increased sputum production * continue albuterol and ipratropium nebs q.6 hours * Pt. is now stable on room air. (2) Chest discomfort: Code(s): R07.89 - Other chest pain Status: Resolved Assessment and Plan: Resolved. * May be related to his COPD * Symptoms not consistent with cardiac pain. ACS ruled out by negative troponins * echocardiogram reviewed. No wall motion abnormalities, no significant valvular disease. * Resolved. (3) Tobacco use disorder, continuous: Code(s): F17.209 - Nicotine dependence, unspecified, with unspecified nicotine-induced disorders Status: Acute Assessment and Plan: - Smoking cessation is encouraged and was discussed. Nicotine patch available for the patient per his request. (4) Diastolic dysfunction: Code(s): I51.89 - Other ill-defined heart diseases Status: Acute Assessment and Plan: Echocardiogram performed today showed grade 1 diastolic dysfunction * this can account for his trace lower extremity edema. Venous Doppler negative for DVT * no evidence of pulmonary edema * continue to monitor volume status closely * heart healthy diet * - Pt. appears euvolemic on 07/18/21 (5) Hypertension: Qualifiers: Hypertension type: unspecified Qualified Code(s): I10 - Essential (primary) hypertension Code(s): I10 - Essential (primary) hypertension Status: Chronic Assessment and Plan: Blood pressures reviewed and have been stable. Last BP 140/80. * Resume home metoprolol succinate 100 mg daily (6) Bipolar disorder: Qualifiers: Active/Remission status: remission status unspecified Qualified Code(s): F31.9 - Bipolar disorder, unspecified Code(s): F31.9 - Bipolar disorder, unspecified Status: Chronic Assessment and Plan: No acute issues * Continue home medications (7) Benign prostatic hyperplasia: Qualifiers: Lower urinary tract symptom presence: unspecified whether lower urinary tract symptoms present Qualified Code(s): N40.0 - Benign prostatic hyperplasia without lower urinary tract symptoms Code(s): N40.0 - Benign prostatic hyperplasia without lower urinary tract symptoms Status: Chronic Assessment and Plan: Continue tamsulosin. (8) Obstructive sleep apnea: Code(s): G47.33 - Obstructive sleep apnea (adult) (pediatric) Status: Chronic Assessment and Plan: Patient is intolerant to CPAP. Discussed importance of trying to get used to using the CPAP. (9) Prediabetes: Code(s): R73.03 - Prediabetes Status: Chronic Assessment and Plan: A1c is 5.8 * patient will need to implement dietary and lifestyle modifications Time Spent With Patient Time with patient: 15 - 25 minutes Subjective Date/time seen: 07/18/21 1130 This pt. is examined at the bedside in interval assessment. He appears to be doing well. States that his breathin
--- NOTE | 2021-07-18 14:13 | PM.IMPN ---
Progress Note: A&P Assessment and Plan (1) Acute exacerbation of chronic obstructive pulmonary disease: Code(s): J44.1 - Chronic obstructive pulmonary disease with (acute) exacerbation Status: Acute Assessment and Plan: Likely precipitated by acute bronchitis in the setting of ongoing tobacco use. No evidence of pneumonia on imaging. Last dose of Solumedrol will be given this evening. Start po Prednisone 60 mg daily starting tomorrow. continue p.o. Augmentin in light of increased sputum production continue albuterol and ipratropium nebs q.6 hours Pt. is now stable on room air. (2) Chest discomfort: Code(s): R07.89 - Other chest pain Status: Resolved Assessment and Plan: Resolved. May be related to his COPD Symptoms not consistent with cardiac pain. ACS ruled out by negative troponins echocardiogram reviewed. No wall motion abnormalities, no significant valvular disease. Resolved. (3) Tobacco use disorder, continuous: Code(s): F17.209 - Nicotine dependence, unspecified, with unspecified nicotine-induced disorders Status: Acute Assessment and Plan: - Smoking cessation is encouraged and was discussed. Nicotine patch available for the patient per his request. (4) Diastolic dysfunction: Code(s): I51.89 - Other ill-defined heart diseases Status: Acute Assessment and Plan: Echocardiogram performed today showed grade 1 diastolic dysfunction this can account for his trace lower extremity edema. Venous Doppler negative for DVT no evidence of pulmonary edema continue to monitor volume status closely heart healthy diet - Pt. appears euvolemic on 07/18/21 (5) Hypertension: Qualifiers: Hypertension type: unspecified Qualified Code(s): I10 - Essential (primary) hypertension Code(s): I10 - Essential (primary) hypertension Status: Chronic Assessment and Plan: Blood pressures reviewed and have been stable. Last BP 140/80. Resume home metoprolol succinate 100 mg daily (6) Bipolar disorder: Qualifiers: Active/Remission status: remission status unspecified Qualified Code(s): F31.9 - Bipolar disorder, unspecified Code(s): F31.9 - Bipolar disorder, unspecified Status: Chronic Assessment and Plan: No acute issues Continue home medications (7) Benign prostatic hyperplasia: Qualifiers: Lower urinary tract symptom presence: unspecified whether lower urinary tract symptoms present Qualified Code(s): N40.0 - Benign prostatic hyperplasia without lower urinary tract symptoms Code(s): N40.0 - Benign prostatic hyperplasia without lower urinary tract symptoms Status: Chronic Assessment and Plan: Continue tamsulosin. (8) Obstructive sleep apnea: Code(s): G47.33 - Obstructive sleep apnea (adult) (pediatric) Status: Chronic Assessment and Plan: Patient is intolerant to CPAP. Discussed importance of trying to get used to using the CPAP. (9) Prediabetes: Code(s): R73.03 - Prediabetes Status: Chronic Assessment and Plan: A1c is 5.8 patient will need to implement dietary and lifestyle modifications Time Spent With Patient Time with patient: 15 - 25 minutes Subjective Date/time seen: 07/18/21 1130 This pt. is examined at the bedside in interval assessment. He appears to be doing well. States that his breathing today is better than it was yesterday and he is noted to be off of oxygen at this time. He remains on IV steroids and we will transition him to po starting tomorrow. He has no CP, N/V/D and he has no palpitations or other concerns to report at this time. Will order a home oxygen evaluation to be performed by respiratory. Review of Systems Review of Systems: A full 12 point ROS was completed and is otherwise negative except for as noted in HPI. All systems reviewed &
--- NOTE | 2021-07-18 14:48 | PCRCNOTE ---
HOME O2 EVAL COMPLETE, NO REQUIREMENTS
[2021-07-18] MEDS: ENOXAPARIN 40 MG/0.4 ML SYRINGE SUB-Q (20:48)
[2021-07-19] VITALS (8 sets, daily range): BP systolic 124–165; BP diastolic 84–94; PULSE 66–84; RESP 17–18; TEMP 36.5–36.7; O2SAT 93–97
[2021-07-19] MEDS: IPRATROPIUM BR 0.02% INH SOLN 0.5 MG/2.5 ML VIAL INHALATION ×2 (02:36→09:12)
[2021-07-19] MEDS: ALBUTEROL SULFATE NEB 2.5 MG/0.5 ML INH 5 MG INHALATION ×2 (02:37→09:11)
[2021-07-19 05:55] LABS: Alanine Aminotransferase 36 U/L (4-50); Albumin Level 4.2 g/dL (3.5-5.1); Alkaline Phosphatase 44 U/L (38-126); Anion Gap 8 mmol/L (8-16); Aspartate Amino Transferase 37 U/L (17-59); Bilirubin,Total 0.6 mg/dL (0.2-1.3); Blood Urea Nitrogen 26 mg/dL (9-20); Carbon Dioxide 30 mmol/L (22-30); Chloride 99 mmol/L (98-107); Estimated CRCL calculation 134 ml/min; Estimated Glomerular Filt Rate > 60; Glucose 152 mg/dL (65-110); Magnesium 2.2 mg/dL (1.6-2.3); Potassium 4.5 mmol/L (3.4-5.0); Sodium 137 mmol/L (137-145)
[2021-07-19 06:11] LABS: Basophils Percent Auto 0.1 % (0.2-1.2); Hematocrit 54.3 % (42.0-52.0); Hemoglobin 17.8 g/dL (14.0-18.0); Immature Granulocyte Absolute 0.07 K/mm3 (0.00-0.031); Immature Granulocyte Percent A 0.5 % (0-0.5); Lymphocytes Absolute Auto 0.66 K/mm3 (0.9-3.2); Lymphocytes Percent Auto 4.7 % (18.3-44.2); Mean Corpuscular HGB Conc 32.8 g/dl (32-36); Mean Corpuscular Hemoglobin 31.3 pg (26-34); Mean Corpuscular Volume 95.6 fl (80-100); Mean Platelet Volume 9.8 fl (7.4-10.4); Monocytes Absolute Auto 0.8 K/mm3 (0.1-0.6); Monocytes Percent Auto 5.3 % (2.6-8.5); Neutrophils Absolute Auto 12.5 K/mm3 (1.3-6.7); Neutrophils Percent Auto 89.4 % (45.5-73.1); Platelet Count Result 214 k/mm3 (150-375); Red Blood Count 5.68 M/mm3 (4.6-6.20); Red Cell Distribution Width 13.7 % (11.5-14.5)
--- NOTE | 2021-07-19 08:14 | PM.DS ---
DS: Admitting Diagnosis Discharge Date 07/19/2021 Admitting Diagnosis 1) Acute exacerbation of COPD 2) Chest Discomfort 3) Tobacco use disorder 4) Lower extremity edema 5) Hypertension 6) Bipolar disorder 7) BPH 8) NABIL DS: Discharge Diagnosis Discharge Diagnosis (1) Acute exacerbation of chronic obstructive pulmonary disease: Code(s): J44.1 - Chronic obstructive pulmonary disease with (acute) exacerbation Status: Acute Assessment and Plan: Likely precipitated by acute bronchitis in the setting of ongoing tobacco use. No evidence of pneumonia on imaging. Last dose of Solumedrol was last evening. Pt. passed home oxygen assessment and does not require supplemental Oxygen at home. Start po Prednisone 60 mg daily starting tomorrow and send home with taper dosing of Prednisone. continue p.o. Augmentin in light of increased sputum production for a total of 10 days including both inpatient and outpatient. continue albuterol and duoneb as outpatient. (2) Chest discomfort: Code(s): R07.89 - Other chest pain Status: Resolved Assessment and Plan: Resolved. May be related to his COPD Symptoms not consistent with cardiac pain. ACS ruled out by negative troponins echocardiogram reviewed. No wall motion abnormalities, no significant valvular disease. Resolved. (3) Tobacco use disorder, continuous: Code(s): F17.209 - Nicotine dependence, unspecified, with unspecified nicotine-induced disorders Status: Acute Assessment and Plan: - Smoking cessation is encouraged and was discussed. Nicotine patch available for the patient per his request. (4) Diastolic dysfunction: Code(s): I51.89 - Other ill-defined heart diseases Status: Acute Assessment and Plan: Echocardiogram performed today showed grade 1 diastolic dysfunction this can account for his trace lower extremity edema. Venous Doppler negative for DVT no evidence of pulmonary edema continue to monitor volume status closely heart healthy diet - Pt. appears euvolemic on 07/19/21 (5) Hypertension: Qualifiers: Hypertension type: unspecified Qualified Code(s): I10 - Essential (primary) hypertension Code(s): I10 - Essential (primary) hypertension Status: Chronic Assessment and Plan: Blood pressures reviewed and have been stable. Last BP 140/80. Resume home metoprolol succinate 100 mg daily (6) Bipolar disorder: Qualifiers: Active/Remission status: remission status unspecified Qualified Code(s): F31.9 - Bipolar disorder, unspecified Code(s): F31.9 - Bipolar disorder, unspecified Status: Chronic Assessment and Plan: No acute issues Continue home medications (7) Benign prostatic hyperplasia: Qualifiers: Lower urinary tract symptom presence: unspecified whether lower urinary tract symptoms present Qualified Code(s): N40.0 - Benign prostatic hyperplasia without lower urinary tract symptoms Code(s): N40.0 - Benign prostatic hyperplasia without lower urinary tract symptoms Status: Chronic Assessment and Plan: Continue tamsulosin. (8) Obstructive sleep apnea: Code(s): G47.33 - Obstructive sleep apnea (adult) (pediatric) Status: Chronic Assessment and Plan: Patient is intolerant to CPAP. Discussed importance of trying to get used to using the CPAP. (9) Prediabetes: Code(s): R73.03 - Prediabetes Status: Chronic Assessment and Plan: A1c is 5.8 patient will need to implement dietary and lifestyle modifications DS: Summary Hospital Course Reason for hospitalization: Dyspnea, Chest pain Hospital Course: This pleasant, 61 year old male patient was admitted to the hospital on 07/16/21 with complaints of having dyspnea with a productive cough, and an intermittent burning discomfort in his chest with increase in BLE edema from
[2021-07-19] MEDS: NICOTINE (*PBKC) 7 MG PATCH 1 PATCH TRANSDERM (09:24)
[2021-07-19] MEDS: AMOXICILLIN/CLAVULANATE K 875-125 MG TAB 1 TABLET PO (09:26)
[2021-07-19] MEDS: predniSONE 20 MG TABLET 60 MG PO (09:26)
[2021-07-19] MEDS: METOPROLOL SUCCINATE EXT REL 100 MG TABCR PO (09:26)
[2021-07-19] MEDS: TAMSULOSIN HCL 0.4 MG CAPSULE PO (09:26)
== END 2021-07-19 11:15 | disposition home or self-care (01) | DRG 191 ==
LOC: ANHED 15:39 → ANHIMU 16:08 → ANH3MED 07-17 20:10
PROVIDERS: Emergency Medicine; Physician Assistant; Admitting Provider Hospitalist; Emergency Provider Emergency Medicine; PCP Family Medicine; Visit Provider Nurse Practitioner Adult Health
DX: J44.1 Chronic obstructive pulmonary disease with (acute) exacerbation (principal); Z68.41 Body mass index [BMI] 40.0-44.9, adult; I10 Essential (primary) hypertension; N40.0 Benign prostatic hyperplasia without lower urinary tract symptoms; Z20.822 Contact with and (suspected) exposure to COVID-19; R07.89 Other chest pain; G47.33 Obstructive sleep apnea (adult) (pediatric); F31.9 Bipolar disorder, unspecified; F17.210 Nicotine dependence, cigarettes, uncomplicated; I51.89 Other ill-defined heart diseases; R73.03 Prediabetes; E66.9 Obesity, unspecified; M16.11 Unilateral primary osteoarthritis, right hip; G62.9 Polyneuropathy, unspecified; Z96.651 Presence of right artificial knee joint
CPT/HCPCS: 36415; 36600; 71046; 80048; 80053; 80164; 82375; 82805; 83036; 83050; 83735; 83880; 84443; 84484; 85025; 85027; 85380; 93005; 93970; 94618; 94640; 96374; 96375; 96376; 99285; A9270; C8929; C9803; G0378; J1650; J2930; J7512; Q9957; U0003; U0005

== ENCOUNTER 2021-11-11 08:43 | Emergency (ER) | payer BC, SELFPAY ==
--- NOTE | ~2021-11-11 | XR_ITS ---
XR tibia fibula RT 2V DATE: 11/11/2021 09:47 INDICATION: Injury 7 days ago. Lateral mid lower leg soft tissue swelling TECHNIQUE: AP and lateral views of right lower leg COMPARISON: None FINDINGS: Status post right total knee arthroplasty with patellar resurfacing. No fracture or dislocation, periosteal reaction or bone destruction of the tibia or fibula. Plantar and posterior calcaneal enthesopathy.. Soft tissue swelling of lower leg and ankle, more prominent laterally. No radiopaque soft tissue fore ign body or subcutaneous emphysema. IMPRESSION: Soft tissue swelling of lower leg and ankle, greater laterally Status post right knee arthroplasty with patellar resurfacing No fracture or dislocation or bone destruction Plantar and posterior calcaneal enthesopathy Reviewed, dictated and finalized at location A.
[2021-11-11 08:51] VITALS: BP 170/78; PULSE 63; RESP 22; TEMP 36.8; O2SAT 97
--- NOTE | 2021-11-11 09:35 | ED.LOWEXIN ---
HPI - Extremity Injury (Lower) General Chief Complaint: Extremity Injury, Lower Stated Complaint: Right Lower Leg Injury Time Seen by Provider: 11/11/21 09:27 History of Present Illness HPI Narrative: pt says last thursday over a week ago getting out of his truck slippedon step up and ran leg down car edge right lateral bruise didn't see anyone for the injury and since more swelling, has chronic leg stasis and swelling but this is worse swelling pain and deep redness and warmth. no break in the skin no neuro changes can walk on it walked in. no other trauma/cp/sob/abd pain/neuro chagnes but came in for evaluation smokes and drinks daily no h/o withdrawl sz and says on no blood thinners Related Data Allergies Allergy/AdvReac Type Severity Reaction Status Date / Time rivaroxaban Allergy Unknown Swelling Verified 11/11/21 09:00 Review of Systems Constitutional: Comments: CONSTITUTIONAL: Denies fever, chills, or sweats. EYES: Denies visual changes, redness, or discharge. ENT: Denies rhinorrhea, congestion, sore throat, or otalgia. CARDIOVASCULAR: Denies chest pain, palpitations, or edema. RESPIRATORY: Denies cough or dyspnea. GASTROINTESTINAL: Denies abdominal pain, nausea, vomiting, or diarrhea. GENITOURINARY: Denies dysuria or hematuria. SKIN: Denies rash or itching. red warm right le with bruising lateral lower leg MUSCULOSKELETAL: Denies back pain, joint pain, has right myalgia. NEUROLOGIC: Denies headache, numbness, or weakness. PSYCHIATRIC: Denies anxiety or depression. [facility] Past Medical History Medical History (Updated 11/11/21 @ 09:41 by Jennifer Julio MD) Abdominal pain Acute exacerbation of chronic obstructive pulmonary disease Ankle edema, bilateral BMI 39.0-39.9,adult Chest discomfort Chest pain in adult Chronic low back pain with bilateral sciatica Gout Morbid obesity with BMI of 40.0-44.9, adult Osteoarthritis of right hip Pain of right lower extremity Peripheral neuropathy Polycythemia Tobacco use disorder, continuous patient quit smoking 07/25/2021. UTI (urinary tract infection) Surgical History Surgical History History of arthroplasty of right knee (2017) Dr. Jane. History of arthroscopy of left knee (10/2010) History of shoulder surgery (1994) Family History Family History Mother Patient's mother is in good health Father Acute myocardial infarction, Onset Age: 48 Grandparent Cerebrovascular accident, Onset Age: 78 Social History Social History Social History: Surrogate decision maker: Jeffryedy Salgado, brother. Code status: Full code. Smoking packs per day: 0.5 Smoking cigarettes per day: 10.0 Years smoked: 45 Smoking pack-years: 22.50 Smoking status: Former smoker Tobacco type: cigarettes Alcohol intake: current Drinks per week: 35 Alcohol use details: Drinks 4 to 5 beers most nights of the week. Substance use: never Substance use type: does not use Additional living arrangements comments: The patient lives in [place]. Additional occupation/education comments: Works at [employer]. Exam Const: Other: APPEARANCE: Well appearing, no pain in distress, well-nourished. Head normocephalic atraumtaic. EYES: PERRLA/EOMI, conjunctivae very clear. NOSE: Normal no drainage EARS:TMS clear Rishi Carrion, with good light reflex. THROAT: Pharynx clear, no exudate. NECK: Supple. No adenopathy, no masses. RESPIRATORY: Airway patent, repsirations nonlabored. Clear to auscultation bilaterally, no rales, rhonchi, wheezing. CARDIOVASCULAR: Regular rate and rhythm without murmurs rubs or gallops. ABDOMINAL: Soft, nontender, nondistended, no hepatosplenomegally MUSCULOSKELETAl: Moves all extremities. Strenght/ROM intact, has edema and red warm right leg below knee to just above ankle with golf ball righ
[2021-11-11 10:27] LABS: Basophils Percent Auto 0.3 % (0.2-1.2); Eosinophils Absolute Auto 0.1 K/mm3 (0-0.3); Eosinophils Percent Auto 1.4 % (0-4.4); Hematocrit 49.5 % (42.0-52.0); Hemoglobin 16.7 g/dL (14.0-18.0); Immature Granulocyte Absolute 0.04 K/mm3 (0.00-0.031); Immature Granulocyte Percent A 0.4 % (0-0.5); Lymphocytes Absolute Auto 1.23 K/mm3 (0.9-3.2); Lymphocytes Percent Auto 12.9 % (18.3-44.2); Mean Corpuscular HGB Conc 33.7 g/dl (32-36); Mean Corpuscular Hemoglobin 31.6 pg (26-34); Mean Corpuscular Volume 93.6 fl (80-100); Mean Platelet Volume 9.5 fl (7.4-10.4); Monocytes Absolute Auto 0.7 K/mm3 (0.1-0.6); Monocytes Percent Auto 7.7 % (2.6-8.5); Neutrophils Absolute Auto 7.4 K/mm3 (1.3-6.7); Neutrophils Percent Auto 77.3 % (45.5-73.1); Platelet Count Result 205 k/mm3 (150-375); Red Blood Count 5.29 M/mm3 (4.6-6.20); Red Cell Distribution Width 13.2 % (11.5-14.5); White Blood Count 9.5 K/mm3 (4.5-10.0)
[2021-11-11] MEDS: ONDANSETRON INJ 4 MG/2 ML VIAL IV PUSH (10:32)
[2021-11-11] MEDS: fentaNYL CITRATE INJ (*CRX) 100 MCG/2 ML VIAL 50 MCG IV PUSH (10:32)
[2021-11-11 10:38] LABS: Ethanol < 10 mg/dL (<10); Lactic Acid Reflex 1.5 mmol/L (0.7-2.0)
[2021-11-11 10:42] LABS: Alanine Aminotransferase 25 U/L (6-50); Albumin Level 4.3 g/dL (3.5-5.1); Alkaline Phosphatase 60 U/L (38-126); Anion Gap 4 mmol/L (8-16); Aspartate Amino Transferase 23 U/L (17-59); Bilirubin,Total 0.7 mg/dL (0.2-1.3); Blood Urea Nitrogen 19 mg/dL (9-20); CRP 0.7 mg/dL (<1.0); Calcium 9.2 mg/dL (8.4-10.2); Carbon Dioxide 31 mmol/L (22-30); Chloride 99 mmol/L (98-107); Creatine Kinase 76 U/L (55-170); Estimated CRCL calculation 105 ml/min; Estimated Glomerular Filt Rate > 60; Glucose 110 mg/dL (65-110); Potassium 4.6 mmol/L (3.4-5.0); Sodium 134 mmol/L (137-145)
[2021-11-11 10:44] LABS: Prothrombin Time 12.7 Seconds (11.1-14.7)
[2021-11-11 10:45] LABS: Partial Thromboplastin Time 24.3 SECONDS (22.3-36.8)
[2021-11-11 10:53] LABS: D Dimer 0.37 ug/mL (<0.48)
== END 2021-11-11 11:30 | disposition home or self-care (01) ==
PROVIDERS: Emergency Provider Emergency Medicine; PCP Family Medicine
DX: L03.115 Cellulitis of right lower limb (principal); J44.9 Chronic obstructive pulmonary disease, unspecified; I10 Essential (primary) hypertension; E78.2 Mixed hyperlipidemia; Z87.891 Personal history of nicotine dependence; W22.09XA Striking against other stationary object, initial encounter
CPT/HCPCS: 36415; 73590; 80053; 80307; 82550; 83605; 85025; 85380; 85610; 85730; 86140; 87040; 96365; 96375; 99284; J0690; J2405; J3010

== ENCOUNTER 2021-11-17 08:00 | Emergency (ER) | payer BC, SELFPAY ==
--- NOTE | ~2021-11-17 | US_ITS ---
EXAMINATION: US venous doppler LE RT DATE: 11/17/2021 09:58 INDICATION: Right lower limb cellulitis with worsening pain, swelling and erythema. TECHNIQUE: Grayscale ultrasound images without and with compression and Doppler ultrasound images of the right lower extremity veins were obtained. COMPARISON: None. FINDINGS: The visualized portions of right common femoral vein, profunda (deep) femoral vein, femoral vein, pop liteal vein, peroneal trunk, posterior tibial veins, gastrocnemius vein and greater saphenous vein ou tflow are patent. The region of the peroneal veins in the deep right calf is secured. IMPRESSION: 1. No deep venous thrombosis in the right lower limb. Reviewed, dictated and finalized at location A.
[2021-11-17 08:13] VITALS: BP 131/69; PULSE 71; RESP 18; TEMP 36.9; O2SAT 95
--- NOTE | 2021-11-17 09:34 | ED.GENADULT ---
HPI - General Adult General Chief complaint: Wound/Laceration <DEON Stanford Last Filed: 11/17/21 20:25> Stated complaint: CELLULITIS LRE GETTING WORSE <DEON Stanford Last Filed: 11/17/21 20:25> Time Seen by Provider: 11/17/21 08:57 <DEON Stanford Last Filed: 11/17/21 20:25> Source: patient <DEON Stanford Last Filed: 11/17/21 20:25> Mode of arrival: ambulatory <DEON Stanford Last Filed: 11/17/21 20:25> Limitations: no limitations <DEON Stanford Last Filed: 11/17/21 20:25> History of Present Illness HPI narrative: Patient is a 61-year-old male who presents the ED with report of increased swelling to his right lower extremity. Patient was diagnosed with cellulitis of his right delgado on 11/11 after sustaining an abrasion getting out of his truck. There was discussion of obtaining a venous Doppler ultrasound of RLE to rule out DVT, however patient was unable to return in the morning to have test performed. D-dimer was obtained in ED and negative at that time. He was started on Keflex and Bactrim and received a dose of IV Ancef in the ED. He has been taking antibiotics as prescribed. He stated the redness and tenderness from his knee to just above his ankle began to improve somewhat, however the swelling has continued to worsen. He does note a history of chronic BLE edema, but states it has not been this swollen before. Swelling going into his right knee and right foot. He did follow-up with his doctor on Thursday and was told if symptoms became worse to return to the ED. Patient denies any fever, chills, nausea, vomiting, chest pain, difficulty breathing. Patient is not on any diuretic therapy. <DEON Stanford Last Filed: 11/17/21 20:25> Related Data Allergies/adverse reactions: Allergies Allergy/AdvReac Type Severity Reaction Status Date / Time rivaroxaban Allergy Unknown Swelling Verified 11/18/21 09:48 <DEON Stanford Filed: 11/17/21 20:25> Review of Systems Review of Systems: CONSTITUTIONAL: Denies fever, chills. CARDIOVASCULAR: Reports chronic BLE edema. Denies chest pain. RESPIRATORY: Denies dyspnea. GASTROINTESTINAL: Denies nausea, vomiting. SKIN: Reports redness, swelling to RLE, extending into right knee/right foot. MUSCULOSKELETAL: Reports pain to RLE. NEUROLOGIC: Denies headache, numbness, or weakness. <Lakeshia Wagner PA-C - Last Filed: 11/17/21 20:25> All systems reviewed & are unremarkable except as noted in HPI and below <Lakeshia Wagner PA-C - Last Filed: 11/17/21 20:25> [facility] Past Medical History Medical History: Medical History Abdominal pain Acute exacerbation of chronic obstructive pulmonary disease Ankle edema, bilateral BMI 39.0-39.9,adult Cellulitis of leg, right Chest discomfort Chest pain in adult Chronic low back pain with bilateral sciatica Gout Morbid obesity with BMI of 40.0-44.9, adult Osteoarthritis of right hip Pain of right lower extremity Peripheral neuropathy Polycythemia Tobacco use disorder, continuous patient quit smoking 07/25/2021. UTI (urinary tract infection) <Lakeshia Wagner PA-C - Last Filed: 11/17/21 20:25> Surgical History Surgical History: Surgical History History of arthroplasty of right knee (2016) Dr. Jane. History of arthroscopy of left knee (10/2010) History of shoulder surgery (1994) <Lakeshia Wagner PA-C - Last Filed: 11/17/21 20:25> Family History Family History: Family History Mother Patient's mother is in good health Father Acute myocardial infarction, Onset Age: 48 Grandparent Cerebrovascular accident, Onset Age: 78 <DEON Stanford Last Filed: 11/17/21 20:25> Social History Social History: Social History (Revi
[2021-11-17 09:37] LABS: Basophils Percent Auto 0.2 % (0.2-1.2); Eosinophils Absolute Auto 0.6 K/mm3 (0-0.3); Eosinophils Percent Auto 5.6 % (0-4.4); Hematocrit 46.4 % (42.0-52.0); Hemoglobin 15.6 g/dL (14.0-18.0); Immature Granulocyte Percent A 0.9 % (0-0.5); Lymphocytes Absolute Auto 0.58 K/mm3 (0.9-3.2); Lymphocytes Percent Auto 5.4 % (18.3-44.2); Mean Corpuscular HGB Conc 33.6 g/dl (32-36); Mean Corpuscular Hemoglobin 30.9 pg (26-34); Mean Corpuscular Volume 91.9 fl (80-100); Mean Platelet Volume 9.5 fl (7.4-10.4); Monocytes Absolute Auto 0.5 K/mm3 (0.1-0.6); Monocytes Percent Auto 4.7 % (2.6-8.5); Neutrophils Percent Auto 83.2 % (45.5-73.1); Platelet Count Result 179 k/mm3 (150-375); Red Blood Count 5.05 M/mm3 (4.6-6.20); Red Cell Distribution Width 13.6 % (11.5-14.5); White Blood Count 10.8 K/mm3 (4.5-10.0)
[2021-11-17 09:48] LABS: Alanine Aminotransferase 48 U/L (6-50); Albumin Level 3.6 g/dL (3.5-5.1); Alkaline Phosphatase 81 U/L (38-126); Anion Gap 6 mmol/L (8-16); Aspartate Amino Transferase 39 U/L (17-59); Bilirubin,Total 0.3 mg/dL (0.2-1.3); Blood Urea Nitrogen 19 mg/dL (9-20); Calcium 8.8 mg/dL (8.4-10.2); Carbon Dioxide 31 mmol/L (22-30); Chloride 97 mmol/L (98-107); Estimated CRCL calculation 87 ml/min; Estimated Glomerular Filt Rate > 60; Glucose 116 mg/dL (65-110); Potassium 4.8 mmol/L (3.4-5.0); Sodium 134 mmol/L (137-145)
[2021-11-17 11:08] VITALS: BP 124/64; PULSE 66; RESP 18; O2SAT 96
== END 2021-11-17 12:10 | disposition home or self-care (01) ==
PROVIDERS: Physician Assistant; Emergency Provider Emergency Medicine; PCP Family Medicine
DX: L03.115 Cellulitis of right lower limb (principal); M79.89 Other specified soft tissue disorders; J44.9 Chronic obstructive pulmonary disease, unspecified; M10.9 Gout, unspecified; G62.9 Polyneuropathy, unspecified; M16.11 Unilateral primary osteoarthritis, right hip; E66.01 Morbid (severe) obesity due to excess calories; Z68.41 Body mass index [BMI] 40.0-44.9, adult; Z87.440 Personal history of urinary (tract) infections; Z96.651 Presence of right artificial knee joint; Z87.891 Personal history of nicotine dependence
CPT/HCPCS: 36415; 80053; 85025; 93971; 99284

== ENCOUNTER 2022-01-24 08:30 | Outpatient (RCR) | payer BC, SELFPAY ==
--- NOTE | 2021-12-24 10:18 | PTOPEVAL ---
Thank you for referring Alexsander Salgado to [facility].? He is scheduled to be seen for therapy?3 x/week for 5 weeks. Please review, sign, date and return this plan of care ARTEMIO. I agree with and certify that the following plan of care is medically necessary. Referring Physician Date Attending Provider: Steven Walsh MD Past Medical History Source of Past Medical History Recalled from Previous Visit, Confirmed with Patient/Family Neurological History Hx Neurological Disorders No Significant History Cardiovascular History Hx Hypertension Yes: meds Respiratory History Hx Chronic Obstructive Pulmonary Disease Yes (COPD) Hx Sleep Apnea Yes Gastrointestinal History Hx Gastrointestinal Disorders No Significant History Genitourinary History Hx Genitourinary Disorders No Significant History Musculoskeletal History Hx Back Pain Yes: chronic Hx Joint Replacement Yes: R TKR '16 Hx Orthopedic Surgery Yes: R shoulder surgery due to fracture Hx Other Musculoskeletal Disorders Yes: stiffness and aching in legs Hematological History Hx Hematological Disorders No Significant History Endocrine History Hx Endocrine Disorders No Significant History HEENT History Hx HEENT Disorders No Significant History Integumentary History Hx Skin Disorders No Significant History Reproductive History Hx Reproductive Disorders No Significant History Psychosocial History Hx Other Psychiatric Disorders Yes Pain History History of Any Previous or Ongoing No Significant History Instance of Pain Anesthesia History Hx Anesthesia Reactions No Significant History Evaluation Information Diagnosis lymphedema B LE's Onset September 2021 Subjective Information injury to R leg and cellulitis Query Text:As Reported By Patient/ Family Prior Level of Function Activity Level (Last 3 Months) Occupation retired Activity of Daily Living Ability Independent Indoor/Home Mobility Independent Community Mobility Independent Stairs Ability Independent Functional Cognition (Planning, Shopping Independent , Taking Medications) Cooking Yes Cleaning Yes Laundry Yes Shopping Yes Driving Yes Home Setting Mobility Assistive Devices (Used Last 3 None Months) Comments Additional Prior Level of Function recently retired from [employer]-- physical work; active with
--- NOTE | 2022-01-24 16:02 | PCPTNOTE ---
PHYSICAL THERAPY DISCHARGE 01-24-22 Attending Provider: Steven Walsh MD Patient:Alexsander Salgado Date of :1960 Dereck has received a total of 13 PT sessions, from December 24 to today for the diagnosis of B LE lymphedema. He has improved with circumferential measurement of leg, from bottom of foot to 72 cm: R is 804.7 cm, decreased by 48.5 cm and L is 776.1 cm, decreased by 38.4 cm compared to the initial evaluation. The skin integrity is improved, without any redness or fibrotic tissue. Education has been completed for self care of lymphedema with self manual lymph drainage, skin care and compression garment. He is independent with donning and doffing the Mediven compression calf high garments, 20-30 mmHg compression. The process has been initiated with [facility] for him to obtain a home intermittent compression pump. The goals have been achieved, he will be discharged from PT at this time. Thank you for referring Dereck to [facility]. Please review, sign, date and return this discharge summary ARTEMIO. I have been updated about the patient's current status and I agree with discharge from the above service at this time. Referring Physician Date
== END 2022-01-27 10:45 | disposition home or self-care (01) ==
LOC: ANHPT 08:30
PROVIDERS: PCP Family Medicine; Visit Provider Family Medicine
DX: I87.2 Venous insufficiency (chronic) (peripheral) (principal); R60.0 Localized edema; L03.115 Cellulitis of right lower limb; S89.91XD Unspecified injury of right lower leg, subsequent encounter
CPT/HCPCS: 29581; 97016; 97110; 97140; 97161

== ENCOUNTER 2022-04-15 00:59 | Day surgery (SDC) | payer BC, SELFPAY ==
[2022-04-08 12:10] VITALS: BMI 40.6
--- NOTE | 2022-04-15 08:04 | WPDANESEPPF ---
Anes - Initial Pre Proc Eval Procedure: Operation Date: 04/15/22 11:15 Proposed Procedures p Screening Colonoscopy - Mauri Avelar MD Date/Time: 04/15/22 08:04 Surgeon: Mauri Avelar MD Pre Op Diagnosis: neoplasm screening Patient Data Age: 61 Gender: M Height: 1.83 m Weight: 136 kg Allergies Allergy/AdvReac Type Severity Reaction Status Date / Time rivaroxaban Allergy Unknown Swelling Verified 04/15/22 10:07 Home Medications Medication Instructions Recorded Confirmed Type albuterol sulfate 90 mcg/actuation 2 puff inhalation QID PRN 07/19/21 04/08/22 Rx aerosol inhaler shortness of breath or wheezing #8.5 grams tamsulosin 0.4 mg capsule 0.4 mg PO . b.i.d. #180 caps 08/14/21 04/08/22 Rx allopurinol 100 mg tablet 100 mg PO DAILY #90 tabs 02/11/22 04/08/22 Rx aripiprazole 10 mg tablet 10 mg PO DAILY #90 tabs 02/11/22 04/08/22 Rx atorvastatin 40 mg tablet 40 mg PO DAILY #90 tabs 02/11/22 04/08/22 Rx divalproex 500 mg tablet,extended 500 mg PO BID #180 tabs 02/11/22 04/08/22 Rx release 24 hr metoprolol succinate 100 mg 100 mg PO DAILY #90 tabs 02/11/22 04/08/22 Rx tablet,extended release 24 hr meloxicam 15 mg tablet 15 mg PO DAILY PRN pain #90 tabs 02/18/22 04/08/22 Rx fluticasone fur. 200 mcg-umeclid 1 inh inhalation DAILY #180 ea 02/27/22 04/08/22 Rx 62.5 mcg-vilant 25 mcg inhalat.powder (Trelegy Ellipta) Patient hx anesthesia problems: none Family hx anesthesia problems: none Results Review: All pre-operative results and documents have been reviewed as part of the pre-operative evaluation. [facility] Past Medical History Medical History (Updated 04/15/22 @ 10:40 by Mauri Avelar MD) Abdominal pain Acute exacerbation of chronic obstructive pulmonary disease Ankle edema, bilateral BMI 39.0-39.9,adult Body mass index (BMI) 40.0-44.9, adult (01/12/19) Cellulitis of leg, right Chest discomfort Chest pain in adult Chronic low back pain with bilateral sciatica Edema of both lower legs due to peripheral venous insufficiency Essential (primary) hypertension Gout Male erectile dysfunction, unspecified Morbid obesity with BMI of 40.0-44.9, adult NABIL (obstructive sleep apnea) Osteoarthritis of right hip Pain of right lower extremity Peripheral neuropathy Plantar fasciitis of left foot Polycythemia Tobacco use disorder, continuous patient quit smoking 07/25/2021. restarted 1/2 pack daily UTI (urinary tract infection) Vitamin B12 deficiency (02/22/22) level low at 351 with goal greater than 400 with hemoglobin 17.4 on 02/22/2022. Surgical History Surgical History History of arthroplasty of right knee (2016) Dr. Jane. History of arthroscopy of left knee (10/2010) History of shoulder surgery (1994) Family History Family History (Reviewed 11/15/21 @ 13:13 by Chaz Trevino [facility]) Mother Patient's mother is in good health Father Acute myocardial infarction, Onset Age: 48 Grandparent Cerebrovascular accident, Onset Age: 78 Social History Social History (Updated 02/27/22 @ 16:47 by Magdalena Mahoney MA) Social History: Surrogate decision maker: Jeffry Naomi, brother. Code status: Full code. Smoking packs per day: 1 Smoking cigarettes per day: 20.0 Years smoked: 40 Smoking pack-years: 40.00 Smoking status: Current every day smoker Tobacco type: cigarettes Alcohol intake: current Drinks per week: 42 Alcohol use details: 6 PER DAY, BEER Substance use: never Substance use type: does not use Lack of Transportation: No Lack of Food: Never True Current Housing: I Have Housing Concerned About Future Housing: No Difficulty Paying Gas/Electric Bills: No Difficulty Paying for Meds: No Currently Unemployed: No Education: Associate Degree Difficulty w/ Childcare or Family Care: No Living arrangements: alone Additional living arrangements comments
[2022-04-15 10:08] VITALS: BP 162/64; PULSE 59; RESP 20; TEMP 36.7; O2SAT 92
[2022-04-15] MEDS: LACTATED RINGERS 1,000 ML 150 ML IV CONT (10:23)
--- NOTE | 2022-04-15 10:39 | PM.HPGS ---
History of Present Illness History of Present Illness Consent: Risks, benefits, and alternatives have been discussed and questions answered. Patient agrees to proceed with procedure. Chief complaint: neoplasm screening Narrative: Alexsander Salgado is a 61 year old male Presents for screening colonoscopy. Patient's current weight appetite and bowel movements are normal. He denies abdominal pain. Patient has had no bleeding. States last exam was more than 15 years prior to this. Review of Systems Review of Systems: Review of systems noncontributory. [facility] Past Medical History Medical History (Updated 04/15/22 @ 10:40 by Mauri Avelar MD) Abdominal pain Acute exacerbation of chronic obstructive pulmonary disease Ankle edema, bilateral BMI 39.0-39.9,adult Body mass index (BMI) 40.0-44.9, adult (01/12/19) Cellulitis of leg, right Chest discomfort Chest pain in adult Chronic low back pain with bilateral sciatica Edema of both lower legs due to peripheral venous insufficiency Essential (primary) hypertension Gout Male erectile dysfunction, unspecified Morbid obesity with BMI of 40.0-44.9, adult NABIL (obstructive sleep apnea) Osteoarthritis of right hip Pain of right lower extremity Peripheral neuropathy Plantar fasciitis of left foot Polycythemia Tobacco use disorder, continuous patient quit smoking 07/25/2021. restarted 1/2 pack daily UTI (urinary tract infection) Vitamin B12 deficiency (02/22/22) level low at 351 with goal greater than 400 with hemoglobin 17.4 on 02/22/2022. Surgical History Surgical History History of arthroplasty of right knee (2016) Dr. Jane. History of arthroscopy of left knee (10/2010) History of shoulder surgery (1994) Family History Family History Mother Patient's mother is in good health Father Acute myocardial infarction, Onset Age: 48 Grandparent Cerebrovascular accident, Onset Age: 78 Social History Social History (Updated 02/27/22 @ 16:47 by Magdalena Mahoney MA) Social History: Surrogate decision maker: Jeffry Salgado, brother. Code status: Full code. Smoking packs per day: 1 Smoking cigarettes per day: 20.0 Years smoked: 40 Smoking pack-years: 40.00 Smoking status: Current every day smoker Tobacco type: cigarettes Alcohol intake: current Drinks per week: 42 Alcohol use details: 6 PER DAY, BEER Substance use: never Substance use type: does not use Lack of Transportation: No Lack of Food: Never True Current Housing: I Have Housing Concerned About Future Housing: No Difficulty Paying Gas/Electric Bills: No Difficulty Paying for Meds: No Currently Unemployed: No Education: Associate Degree Difficulty w/ Childcare or Family Care: No Living arrangements: alone Additional living arrangements comments: BROTHER LIVES WITH PT SOMETIMES Additional occupation/education comments: Works at [employer]. Spiritual care concerns: No Meds Home Medications and Allergies Home Medications Medication Instructions Recorded Confirmed Type albuterol sulfate 90 mcg/actuation 2 puff inhalation QID PRN 07/19/21 04/08/22 Rx aerosol inhaler shortness of breath or wheezing #8.5 grams tamsulosin 0.4 mg capsule 0.4 mg PO . b.i.d. #180 caps 08/14/21 04/08/22 Rx allopurinol 100 mg tablet 100 mg PO DAILY #90 tabs 02/11/22 04/08/22 Rx aripiprazole 10 mg tablet 10 mg PO DAILY #90 tabs 02/11/22 04/08/22 Rx atorvastatin 40 mg tablet 40 mg PO DAILY #90 tabs 02/11/22 04/08/22 Rx divalproex 500 mg tablet,extended 500 mg PO BID #180 tabs 02/11/22 04/08/22 Rx release 24 hr metoprolol succinate 100 mg 100 mg PO DAILY #90 tabs 02/11/22 04/08/22 Rx tablet,extended release 24 hr meloxicam 15 mg tablet 15 mg PO DAILY PRN pain #90 tabs 02/18/22 04/08/22 Rx fluticasone fur. 200 mcg-umeclid 1 inh inhalation DAILY
[2022-04-15] MEDS: SIMETHICONE ORAL SUSPENSION 20 MG/0.3 ML 30 ML BOTTLE 0.6 ML IRRIGATION (11:16)
[2022-04-15 11:26] VITALS: BP 159/86; PULSE 69; RESP 31; O2SAT 92
[2022-04-15 11:36] VITALS: BP 149/84; PULSE 64; RESP 17; O2SAT 92
[2022-04-15 11:44] VITALS: BP 152/88; PULSE 60; RESP 18; O2SAT 92
== END 2022-04-15 11:50 | disposition home or self-care (01) ==
PROVIDERS: PCP Family Medicine; Visit Provider Internal Medicine Gastroenterology
PROC: 0DJD8ZZ Inspection of Lower Intestinal Tract, Via Natural or Artificial Opening Endoscopic (ICD-10-PCS; CPT 45378; principal; 2022-04-15 11:15)
DX: Z12.11 Encounter for screening for malignant neoplasm of colon (principal); D12.5 Benign neoplasm of sigmoid colon; K64.8 Other hemorrhoids; J44.9 Chronic obstructive pulmonary disease, unspecified; I10 Essential (primary) hypertension; G47.33 Obstructive sleep apnea (adult) (pediatric); M10.9 Gout, unspecified; G62.9 Polyneuropathy, unspecified; E66.01 Morbid (severe) obesity due to excess calories; Z68.41 Body mass index [BMI] 40.0-44.9, adult; Z79.51 Long term (current) use of inhaled steroids; F17.210 Nicotine dependence, cigarettes, uncomplicated
CPT/HCPCS: 45385; 88305; J2704; J7120

== ENCOUNTER → 2023-04-28 11:12 | Outpatient (CLI) | payer MEDICARE, SELFPAY ==
--- NOTE | ~2023-04-28 | CT_ITS ---
CT Scan of the Chest without Contrast: Clinical Indication: Lung cancer screening, personal history of nicotine dependence Technique: Contiguous sections were acquired throughout the chest without intravenous contrast. Dose reduction technique was used on this scan by utilizing automated exposure control and iterative recon struction technique. The dose-length product (DLP) was 327.47 mGy-cm. Findings: There is no evidence of any significant mediastinal, hilar or axillary lymphadenopathy. The mediastin al soft tissues appear normal. There is no evidence of pleural or pericardial effusion. Calcified right upper lobe granuloma noted. Images through the upper abdomen reveal no abnormalities. Impression: Lung RADS 2: Benign appearance. 12 month follow-up screening CT advised. Reviewed, dictated and finalized at location . 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 12 month follow-up screening CT advised.
== END ==
PROVIDERS: PCP Family Medicine; Visit Provider Family Medicine
DX: Z12.2 Encounter for screening for malignant neoplasm of respiratory organs (principal); Z87.891 Personal history of nicotine dependence
CPT/HCPCS: 71271

== ENCOUNTER → 2024-03-17 16:39 | Outpatient (CLI) | payer MEDICARE, SELFPAY ==
--- NOTE | ~2024-03-17 | XR_ITS ---
XR chest 2V 03/17/2024 16:49 Indication: Acute bronchitis Procedure: 2 view chest Comparison: Comparison to multiple prior studies sequentially, with oldest reviewed study dated 09/2017. Findings: Heart size normal. No focal air space disease, pulmonary edema, pleural effusion or suspect ed pneumothorax. There are surgical changes of the right shoulder. Impression: 1: No acute cardiopulmonary disease. Reviewed, dictated and finalized at location B. 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
== END ==
PROVIDERS: PCP Family Medicine; Visit Provider Family Medicine
DX: J20.9 Acute bronchitis, unspecified (principal)
CPT/HCPCS: 71046